=== PATIENT | male | born 1990 ===

== ENCOUNTER 2018-07-12 02:37 | Emergency (ER) | payer SELFPAY ==
[2018-07-12 02:48] VITALS: RESP 16
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
[2018-07-12 03:23] LABS: BASO # 0.1 K/uL (0.0-0.2); BASO % 0.5 % (0.0-2.0); EOS # 0.1 K/uL (0.0-0.7); EOS % 0.4 % (0.0-4.0); HEMOGLOBIN 16.4 g/dL (12.0-18.0); LYMPH # 1.7 K/uL (1.0-4.3); LYMPH % 13.1 % (20.0-40.0); MEAN CELL VOLUME 90.2 fl (80.0-94.0); MEAN CORPUSCULAR HGB CONC 34.4 g/dL (33.0-37.0); MEAN PLATELET VOLUME 9.1 fl (7.2-11.7); MONO # 0.9 K/uL (0.0-0.8); MONO % 6.9 % (0.0-10.0); NEUT # 9.9 K/uL (1.8-7.0); NEUT % 79.1 % (50.0-75.0); NRBC % 0.3 % (0.0-0.0); RBC 5.28 Mil/uL (4.40-5.90); RED CELL DISTRIBUTION WIDTH 12.9 % (11.5-14.5); WHITE BLOOD COUNT 12.6 K/uL (4.8-10.8)
[2018-07-12 03:33] LABS: BLOOD UREA NITROGEN 12 mg/dl (9-20); CALCIUM 9.6 mg/dL (8.4-10.2); GFR NON-AFRICAN AMERICAN > 60
[2018-07-12] MEDS ORDERED: Naproxen 500 MG TAB PO STA (06:56)
[2018-07-12 07:00] VITALS: BP 122/78; PULSE 86; TEMP 98.2
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
[2018-07-18 08:47] VITALS: O2SAT 100
== END 2018-07-12 06:59 ==
LOC: H.ER 02:37
DX: S09.90XA Unspecified injury of head, initial encounter (principal); F10.129 Alcohol abuse with intoxication, unspecified; Y90.6 Blood alcohol level of 120-199 mg/100 ml; F43.20 Adjustment disorder, unspecified; Y09 Assault by unspecified means
CPT/HCPCS: 70450; 70486; 72125; 80048; 85025; 99285; G0480